=== PATIENT | male | born 1965 | race African-American/Black ===

== ENCOUNTER 2023-12-18 09:58 | Day surgery (SDC) | payer OTHER ==
[~2023-12-18] VITALS: Ht 200.7 cm; Wt 189.2 kg
[~2023-12-18 09:58] MED LIST: Lidocaine PF 2% (20 MG/ML) 5 ML VIAL ONE; Ondansetron 4 MG/2 ML VIAL ONE; Succinylcholine PF 200 MG/10 ML SYRINGE IV ONE; fentaNYL 50 MCG/ML 2 ML VIAL ONE
[2023-12-18] MEDS ORDERED: Famotidine 20 MG TAB PO SCH (10:00)
[2023-12-18] MEDS ORDERED: NS 1,000 ML IV SCH (10:00)
[2023-12-18] MEDS ORDERED: hydrALAZINE 20 MG/ML 1 ML VIAL IV PRN (10:15)
[2023-12-18] MEDS ORDERED: Meperidine 50 MG/ML 1 ML VIAL IV PRN (10:15)
[2023-12-18] MEDS ORDERED: HYDROmorphone 1 MG/1 ML SYRINGE [PACU/SDC ONLY] IV PRN (10:15)
[2023-12-18] MEDS ORDERED: Ondansetron 4 MG/2 ML VIAL IV PRN ×2 (10:15→14:30)
[2023-12-18] MEDS ORDERED: fentaNYL 50 MCG/ML 1 ML SYRINGE/VIAL [PACU/SDC ONLY] IV PRN (10:15)
[2023-12-18] MEDS ORDERED: LR 1,000 ML IV ONE (10:30)
[2023-12-18 11:31] LABS: CALCIUM 9.8 mg/dL (8.4-10.2); CREATININE, serum 0.99 mg/dL (0.72-1.25); POTASSIUM 3.3 mEq/L (3.5-4.5)
[2023-12-18] MEDS ORDERED: LASIX 20MG TABL20 MG PO (11:38)
[2023-12-18] MEDS ORDERED: CLARITIN 1010 MG/TAB PO (11:39)
[2023-12-18] MEDS ORDERED: TOPROL XL100 MG PO (11:39)
[2023-12-18] MEDS ORDERED: PRADAXA 150MG150 MG PO (11:40)
[2023-12-18] MEDS ORDERED: CARDIZEM CD360 MG PO (11:40)
[2023-12-18] MEDS ORDERED: PEPCID 20MG TAB20 MG PO (11:41)
[2023-12-18] MEDS ORDERED: HYDRODIURIL50 MG PO (11:41)
[2023-12-18] MEDS ORDERED: ZYLOPRIM 100MG100 MG PO (11:41)
[2023-12-18] MEDS ORDERED: K-DUR20 MEQ PO (11:43)
[2023-12-18] MEDS ORDERED: MASON NATURAL2000 IU PO (11:43)
[2023-12-18 11:44] VITALS: BP 150/65; PULSE 56; TEMP 97.3
[2023-12-18] MEDS ORDERED: Rocuronium 50 MG/5 ML Multi-Dose VIAL ONE (13:33)
[2023-12-18] MEDS ORDERED: fentaNYL 50 MCG/ML 2 ML VIAL ONE (13:33)
[2023-12-18] MEDS ORDERED: NORCO 325 MG-51 TAB PO (14:10)
[2023-12-18] MEDS ORDERED: MOTRIN 600600 MG/TAB PO (14:10)
[2023-12-18] MEDS ORDERED: Morphine 4 MG/ML VIAL IV PRN (14:30)
[2023-12-18] MEDS ORDERED: Ibuprofen 600 MG TAB PO PRN (14:30)
[2023-12-18 14:45] VITALS: BP 129/58; PULSE 56; TEMP 97.3
[2023-12-18 15:00] VITALS: BP 128/64; PULSE 60
[2023-12-18 15:15] VITALS: BP 136/53; PULSE 54
--- NOTE | 2023-12-18 15:40 | NUR ---
1445 RETURNS TO ROOM 8 PER CART AWAKE, ALERT. RESP UNLABORED. HOB ELEVATED 60 DEGREES. VITAL SIGNS OBTAINED. PAD IN PLACE RECTAL AREA. BANDAID RIGHT GROIN. NO DRAINAGE OBSERVED. DENIES PAIN. CALL LIGHT AT SIDE. 1500 AMBULATES TO BATHROOM WITH STANDBY ASSIST. VOIDS. 1510 TOLERATES PO JUICE AND JELLO WITHOUT NAUSEA 1520 SON HERE. DISCHARGE INSTRUCTIONS REVIEWED. PATIENT VERBALIZES UNDERSTANDING. COPY PROVIDED IN DISCHARGE FOLDER 1530 SITS ON EDGE OF BED. DRESSES SELF
== END 2023-12-18 15:40 | disposition home or self-care (01) ==
LOC: SDCO 09:58
PROVIDERS: Nurse Anesthetist, Certified Registered
DX: K64.2 Third degree hemorrhoids (principal); A63.0 Anogenital (venereal) warts; K64.4 Residual hemorrhoidal skin tags; K21.9 Gastro-esophageal reflux disease without esophagitis; G47.33 Obstructive sleep apnea (adult) (pediatric)
CPT/HCPCS: J0690; J2405; J2704; J3010; J7120